=== PATIENT | female | born 1990 ===

== ENCOUNTER 2019-12-18 20:48 | Inpatient (IN) ==
[2019-12-18 22:26] LABS: Apearance,Urine Slightly Hazy (Clear); Bilirubin,Urine Negative (Negative); Blood, Urine Negative (Negative); Glucose,Urine (UA) Negative (Negative); Ketones,Urine 5 mg/dL (Negative); Nitrite,Urine Negative (Negative); Protein,Urine Negative; Urine Color Yellow (Yellow); Urine Specific Gravity 1.016 (1.001-1.035); Urine Urobilinogen < 2.0 EU/DL (0.2-1.0)
[2019-12-18 22:38] LABS: Bacteria,Urine Rare /HPF (Few); Squamous Epithelial Cell,Urine Moderate /HPF (0-10)
[2019-12-18] MEDS ORDERED: AMPICILLIN INJ 2,000 MG in SODIUM CHLORIDE 0.9% 100 ML IV ONE (23:56)
[2019-12-18] MEDS ORDERED: AMPICILLIN 2,000 MG VIAL ONE (23:57)
[2019-12-19] MEDS: LACTATED RINGERS 1,000 ML IV SCH ×2 (00:03→06:52)
[2019-12-19] MEDS ORDERED: BUTORPHANOL 2 MG/ML VIAL IV ONE ×4 (01:32→15:39)
[2019-12-19] MEDS: ONDANSETRON 4 MG/2 ML VIAL IV PRN ×2 (01:44→10:05)
[2019-12-19] MEDS ORDERED: BUTORPHANOL 2 MG/ML VIAL ONE (10:00)
[2019-12-19] MEDS ORDERED: LACTATED RINGERS 1,000 ML IV SCH (11:30)
[2019-12-19] MEDS ORDERED: SODIUM CHLORIDE 0.9% 100 ML IV ONE (11:40)
[2019-12-19] MEDS ORDERED: AMPICILLIN INJ 2,000 MG in SODIUM CHLORIDE 0.9% 100 ML IV ONE (11:42)
[2019-12-19 11:50] LABS: Basophils % 0.4 % (0.0-0.8); Eosinophils % 0.5 % (0.00-10.9); Hematocrit 32.8 VOL% (35.7-47.0); Hemoglobin 11.2 GM/DL (12.0-16.0); Immature Granulocytes % 0.4 %; Immature Granulocytes Absolute 0.03 #; Lymphocytes # 2.3 10*3/uL (1.4-4.0); Lymphocytes % 27.8 % (21.3-54.2); Mean Corpuscular HGB Conc 34.1 GM/DL (32-36); Mean Corpuscular Volume 96.5 FL (87-102); Mean Platelet Volume 9.8 FL (9.6-12.0); Monocytes % 7.1 % (1.7-12.7); Neutrophils % 63.8 % (38.7-73.9); Platelet Count 214 T/CUMM (130-400); Red Cell Distribution Width 13.9 % (9.3-17.3); White Blood Count 8.2 T/CUMM (4-12)
[2019-12-19] MEDS ORDERED: OXYTOCIN/LR 0 UNIT/0 ML BAG IV ONE (13:47)
[2019-12-19] MEDS ORDERED: miSOPROStoL 200 MCG TABLET ONE (13:47)
[2019-12-19] MEDS ORDERED: TRANEXAMIC ACID 1,000 MG/10 ML VIAL ONE (13:47)
[2019-12-19] MEDS ORDERED: CARBOPROST TROMETHAMINE 250 MCG/ML AMP IM ONE (13:48)
[2019-12-19] MEDS ORDERED: METHYLERGONOVINE 0.2 MG/1 ML AMP ONE (13:48)
[2019-12-19] MEDS: OXYTOCIN/LR 20 UNIT/1,000 ML BAG IV SCH ×2 (14:37→16:54)
[2019-12-19] MEDS ORDERED: LIDOCAINE 1% 50 ML VIAL ONE (14:48)
[2019-12-19] MEDS ORDERED: AMPICILLIN INJ 1,000 MG in SODIUM CHLORIDE 0.9% 100 ML IV SCH (16:00)
[2019-12-19 16:15] LABS: Cord Arterial Blood HCO3 22.3 MMOL/L
[2019-12-19 16:17] LABS: Cord Venous Blood HCO3 20.9 MMOL/L; Cord Venous Blood PCO2 47.4 MMHG; Cord Venous Blood PO2 28.5
[2019-12-19] MEDS ORDERED: OXYTOCIN/LR 20 UNIT/1,000 ML BAG IV ONE (17:35)
[2019-12-19] MEDS ORDERED: RHO(D) IMMUNE GLOBULIN 300 MCG SYRINGE IM ONE (17:35)
[2019-12-19] MEDS ORDERED: LANOLIN 50% CREAM 0.3 OZ TUBE TOP PRN (17:35)
[2019-12-19] MEDS ORDERED: ACETAMINOPHEN 325 MG TABLET PO PRN (17:35)
[2019-12-19] MEDS ORDERED: BISACODYL 10 MG SUPP RECTAL PRN (17:35)
[2019-12-19] MEDS ORDERED: MEASLES/MUMPS/RUBELLA VACCINE 0.5 ML VIAL SUBCUT ONE (17:35)
[2019-12-19] MEDS ORDERED: DIPH/TET/ACEL PERT BOOSTER VACCINE 0.5 ML VIAL IM ONE (17:35)
[2019-12-19] MEDS ORDERED: HYDROCORTISONE 2.5% RECTAL CREAM 30 GM TUBE TOP ONE (17:37)
[2019-12-19] MEDS ORDERED: IBUPROFEN 800 MG TABLET ONE (17:37)
[2019-12-19] MEDS: IBUPROFEN 800 MG TABLET PO PRN (17:46)
[2019-12-19] MEDS: WITCH HAZEL PADS 100/JAR TOP PRN (17:47)
[2019-12-19] MEDS: HYDROCORTISONE 2.5% RECTAL CREAM 30 GM TUBE TOP PRN (17:47)
[2019-12-19] MEDS: BENZOCAINE 20%/MENTHOL 0.5% SPRAY 56 GM CAN TOP PRN (17:47)
[2019-12-19] MEDS: DOCUSATE SODIUM 100 MG CAPSULE PO SCH (21:08)
[2019-12-19] MEDS: oxyCODONE/ACETAMINOPHEN 5-325 MG TABLET PO PRN (21:11)
[2019-12-20] MEDS: IBUPROFEN 800 MG TABLET PO PRN (00:24)
[2019-12-20 05:48] LABS: Basophils % 0.2 % (0.0-0.8); Eosinophils % 0.2 % (0.00-10.9); Hematocrit 32.9 VOL% (35.7-47.0); Hemoglobin 10.7 GM/DL (12.0-16.0); Immature Granulocytes % 0.5 %; Immature Granulocytes Absolute 0.06 #; Lymphocytes # 2.5 10*3/uL (1.4-4.0); Lymphocytes % 19.7 % (21.3-54.2); Mean Corpuscular HGB Conc 32.5 GM/DL (32-36); Mean Corpuscular Volume 98.5 FL (87-102); Mean Platelet Volume 10.9 FL (9.6-12.0); Monocytes % 4.9 % (1.7-12.7); Neutrophils % 74.5 % (38.7-73.9); Platelet Count 238 T/CUMM (130-400); Red Blood Count 3.34 MC/CUMM (3.8-5.5); Red Cell Distribution Width 13.4 % (9.3-17.3); White Blood Count 12.7 T/CUMM (4-12)
[2019-12-20] MEDS: DOCUSATE SODIUM 100 MG CAPSULE PO SCH ×2 (08:02→20:40)
[2019-12-20] MEDS: oxyCODONE/ACETAMINOPHEN 5-325 MG TABLET PO PRN ×2 (08:28→14:57)
[2019-12-21] MEDS: IBUPROFEN 800 MG TABLET PO PRN ×2 (00:11→08:59)
[2019-12-21] MEDS: oxyCODONE/ACETAMINOPHEN 5-325 MG TABLET PO PRN ×2 (00:12→08:57)
[2019-12-21 08:43] VITALS: BP 91/63
[2019-12-21] MEDS: WITCH HAZEL PADS 100/JAR TOP PRN (08:56)
[2019-12-21] MEDS: BENZOCAINE 20%/MENTHOL 0.5% SPRAY 56 GM CAN TOP PRN (08:56)
[2019-12-21] MEDS: HYDROCORTISONE 2.5% RECTAL CREAM 30 GM TUBE TOP PRN (08:56)
[2019-12-21] MEDS: DOCUSATE SODIUM 100 MG CAPSULE PO SCH (08:57)
[2019-12-21] MEDS ORDERED: MULTIVITAMIN (PRENATAL) TABLET PO SCH (09:00)
== END 2019-12-21 14:40 | disposition home or self-care (01) | DRG 807 ==
LOC: N.LDOUT 20:48 → N.LD 20:51 → N.OB 12-19 17:19
PROVIDERS: ADMIT Obstetrics & Gynecology; ATTEND Obstetrics & Gynecology